=== PATIENT | male | born 1960 | race American Indian/Alaskan Native ===

== ENCOUNTER 2020-03-08 11:13 | Emergency (ER) | payer OTHER ==
--- NOTE | 2020-03-08 12:00 | XRay Report ---
CHEST 1 VIEW 03/08/2020 10:50 AM INDICATION / CLINICAL INFORMATION: Hypertensive urgency. COMPARISON: 09/26/14 FINDINGS: SUPPORT DEVICES: None. HEART / MEDIASTINUM: Heart is borderline enlarged for AP portable technique. LUNGS / PLEURA: No significant pulmonary or pleural abnormality. No pneumothorax. ADDITIONAL FINDINGS: No significant additional findings. IMPRESSION: 1. Borderline cardiomegaly but no acute pulmonary or pleural findings. Signer Name: Durga Pulido MD Signed: 03/08/2020 11:55 AM Workstation Name: [id number]
--- NOTE | 2020-03-08 12:05 | Cat Scan Report ---
CT BRAIN: 03/08/2020 INDICATION / CLINICAL INFORMATION: headache with elevated BP. COMPARISON: None available. FINDINGS: BRAIN/INTRACRANIAL STRUCTURES: Unenhanced CT images of the brain demonstrate no evidence of acute int racranial abnormality. Ventricles and sulci are within normal limits of size and shape for a patient of this age. There is no evidence of acute ischemic injury, hemorrhage, or mass. There are no abnormal extra-axial fluid collections. Some chronic white matter hypoattenuation is present cerebral hemispheric white matter, consistent wi th chronic small vessel ischemic change. There are no abnormal extra-axial fluid collections. EXTRACRANIAL STRUCTURES: Unremarkable. IMPRESSION: No acute abnormality. All CT scans at this location are performed using dose reduction to ALARA by means of automated expos ure control. Signer Name: Edward Jennings MD Signed: 03/08/2020 12:01 PM Workstation Name: [id number]
[2020-03-08 12:55] LABS: Basophils % (Auto) 0.4 % (0.0-1.8); Eosinophils % (Auto) 0.6 % (0.0-4.3); Hematocrit 38.3 % (35.5-45.6); Hemoglobin 12.9 gm/dl (11.8-15.2); Lymphocytes # (Auto) 1.7 K/mm3 (1.2-5.4); Lymphocytes % (Auto) 35.3 % (13.4-35.0); Mean Corpuscular HGB Conc 34 % (32-34); Mean Corpuscular Volume 95 fl (84-94); Monocytes # (Auto) 0.6 K/mm3 (0.0-0.8); Monocytes % (Auto) 12.6 % (0.0-7.3); Platelet Count 217 K/mm3 (140-440); Red Blood Count 4.06 M/mm3 (3.65-5.03); Red Cell Distribution Width 12.7 % (13.2-15.2)
[2020-03-08 14:22] LABS: BUN/Creatinine Ratio 19; Blood Urea Nitrogen 15 mg/dL (9-20); Calcium 9.1 mg/dL (8.4-10.2); Hemolysis Index 13
--- NOTE | 2020-03-08 14:32 | Emergency Department Report ---
ED General Adult HPI - General Chief complaint: Syncope Stated complaint: DIZZINESS/HBP Time Seen by Provider: 03/08/20 11:27 Source: EMS Mode of arrival: Stretcher Limitations: No Limitations - History of Present Illness Initial comments: Patient is a 59-year-old gentleman who is presenting with elevated blood pressure. Patient states his had off and on headaches for approximately a week. Patient states he felt very dizzy earlier today after getting out of shower. Patient went to see his primary care physician and his blood pressure was significantly elevated he was told to come to the hospital. Patient denies chest pain shortness of breath cough cold congestion fevers or chills. Patient is been compliant with his medications. Severity scale (0 -10): 0 Associated Symptoms: other (nose bleed yesterday 9resolved)). denies: confusion, chest pain, cough, diaphoresis, fever/chills, headaches, loss of appetite, nausea/vomiting, rash, seizure, shortness of breath, syncope - Related Data Home Medications Medication Instructions Recorded Confirmed Last Taken AtorvaSTATin [Lipitor] 20 mg PO DAILY 03/08/20 03/08/20 Unknown Insulin Glargine,Hum.rec.anlog 100 unit SQ DAILY 03/08/20 03/08/20 Unknown [Lantus Solostar] Sitagliptin Phos/Metformin HCl 1 each PO DAILY 03/08/20 03/08/20 Unknown [Janumet 50-1,000 mg Tablet] Valsartan/Hydrochlorothiazide 1 each PO DAILY 03/08/20 03/08/20 Unknown [Valsartan-Hctz 160-12.5 mg Tab] Previous Rx's Medication Instructions Recorded Last Taken Type Amlodipine Besylate [Norvasc] 5 mg PO DAILY #30 tablet 03/08/20 Unknown Rx Allergies Allergy/AdvReac Type Severity Reaction Status Date / Time aspirin Allergy Swelling Verified 10/09/13 16:36 ED Review of Systems ROS: Stated complaint: DIZZINESS/HBP Other details as noted in HPI Comment: All other systems reviewed and negative ED Past Medical Hx - Past Medical History Hx Hypertension: Yes Hx Diabetes: Yes - Social History Smoking Status: Unknown if ever smoked - Medications Home Medications: Home Medications Medication Instructions Recorded Confirmed Last Taken Type Amlodipine Besylate [Norvasc] 5 mg PO DAILY #30 tablet 03/08/20 Unknown Rx AtorvaSTATin [Lipitor] 20 mg PO DAILY 03/08/20 03/08/20 Unknown History Insulin Glargine,Hum.rec.anlog 100 unit SQ DAILY 03/08/20 03/08/20 Unknown History [Lantus Solostar] Sitagliptin Phos/Metformin HCl 1 each PO DAILY 03/08/20 03/08/20 Unknown History [Janumet 50-1,000 mg Tablet] Valsartan/Hydrochlorothiazide 1 each PO DAILY 03/08/20 03/08/20 Unknown History [Valsartan-Hctz 160-12.5 mg Tab] ED Physical Exam - General Limitations: No Limitations General appearance: alert, in no apparent distress - Head Head exam: Present: atraumatic, normocephalic - Eye Eye exam: Present: normal appearance, PERRL, EOMI - ENT ENT exam: Present: normal orophraynx, mucous membranes moist - Neck Neck exam: Present: normal inspection - Respiratory Respiratory exam: Present: normal lung sounds bilaterally. Absent: respiratory distress, wheezes, rales, rhonchi - Cardiovascular Cardiovascular Exam: Present: regular rate, normal rhythm, normal heart sounds. Absent: systolic murmur, diastolic murmur, rubs, gallop - GI/Abdominal GI/Abdominal exam: Present: soft, normal bowel sounds. Absent: distended, tenderness, guarding, rebound - Rectal Rectal exam: Present: deferred - Extremities Exam Extremities exam: Present: normal inspection - Back Exam Back exam: Present: normal inspection - Neurological Exam Neurological exam: Present: alert, oriented X3 - Psychiatric Psychiatric exam: Present: normal affect, normal mood - Skin Skin exam: Present: warm, dry, intact, normal color. Absent: rash ED Course Vital Signs 03/08/20 03/08/20 03/08/20 11:19 11:39 11:45 Pulse Rate 70 78 Respiratory 18 18 18 Rate Blood Pressure 188/100 Blood Pressure 182/100 [Left] O2 Sat by Pulse 98 97 98 Oximetry 03/08/20 03/08/20 12:19 12:28 Pulse Rate 64 68 Respiratory Rate Blood Pressure 168/98 Blood Pressure [Left] O2 Sat by Pulse Oximetry ED Medical Decision Making - Lab Data Result diagrams: 03/08/20 12:30 03/08/20 12:30 - EKG Data -: EKG Interpreted by Me EKG shows normal: sinus rhythm, axis, intervals, QRS complexes, ST-T waves Rate: normal - EKG Data Interpretation: normal EKG - Radiology Data Chest x-ray shows borderline cardiomegaly with no other acute abnormality. CT of the head shows no acute abnormality. - Medical Decision Making Patient was given 20 mg of labetalol for his hypertension. Patient is laboratory studies unremarkable. Headache is improved after blood pressure reduction. Patient will be restarted on Norvasc which she was taken off of approximately a year ago. Patient has not been taking his losartan because of the way that medication makes him feel. Patient stable for discharge. Critical care attestation.: If time is entered above; I have spent that time in minutes in the direct care of this critically ill patient, excluding procedure time. ED Disposition Clinical Impression: Hypertensive urgency, Near syncope Disposition: DC-01 TO HOME OR SELFCARE Is pt being admited?: No Does the pt Need Aspirin: No Condition: Stable Instructions: Hypertension (ED) Prescriptions: Amlodipine Besylate [Norvasc] 5 mg PO DAILY #30 tablet Referrals: PRIMARY CARE, [Primary Care Provider] - 3-5 Days Time of Disposition: 14:33
[2020-03-08 15:48] VITALS: BP 155/74
== END 2020-03-08 15:46 | disposition home or self-care (01) ==
LOC: ED 11:13
DX: R55 Syncope and collapse (principal); I16.0 Hypertensive urgency; E11.9 Type 2 diabetes mellitus without complications; Z79.4 Long term (current) use of insulin; Z79.899 Other long term (current) drug therapy; Z88.8 Allergy status to other drugs, medicaments and biological substances
CPT/HCPCS: 36415; 70450; 71045; 80048; 85025; 93005; 96374